=== PATIENT | female | born 1945 | race Two or more races ===

== ENCOUNTER 2016-12-11 06:33 | Emergency (ER) | payer MEDICARE, OTHER ==
[~2016-12-11] VITALS: Ht 160 cm; Wt 68.0 kg
--- NOTE | 2016-12-11 06:51 | NUR ---
DAUGHTER WILL BRING IN MEDS
[2016-12-11] MEDS ORDERED: ONDANSETRON 4 MG/2 ML VIAL IV ONE (07:00)
[2016-12-11] MEDS ORDERED: IV NORMAL SALINE 1000 ML BAG IV ONE (07:00)
[2016-12-11 07:08] LABS: BASOPHILS % (AUTO) 0.5 % (0.0-2.0); EOSINOPHILS # (AUTO) 0.1 K/uL (0.0-0.7); HEMATOCRIT 39.2 % (37-47); HEMOGLOBIN 13.4 G/DL (12.0-16.0); LYMPHOCYTES # (AUTO) 1.6 K/UL (0.8-4.8); LYMPHOCYTES % (AUTO) 43.3 % (20.5-51.5); MEAN CORPUSCULAR HGB CONC 34 g/dL (32.0-37.0); MEAN CORPUSCULAR VOLUME 88.1 FL (81.0-99.0); MONOCYTES # (AUTO) 0.3 K/UL (0.1-1.30); MONOCYTES % (AUTO) 8.1 % (0.0-11.0); NEUTROPHILS # (AUTO) 1.6 K/UL (1.8-8.9); NEUTROPHILS % (AUTO) 45.1 % (38.5-71.5); PLATELET COUNT (AUTO) 162 K/UL (150-450); RED BLOOD CELL COUNT(AUTO) 4.45 MIL/UL (4.2-5.4); WHITE BLOOD COUNT (AUTO) 3.6 K/UL (4.0-11.2)
[2016-12-11] MEDS ORDERED: ONDANSETRON 4 MG/2 ML VIAL ONE (07:13)
[2016-12-11 07:22] LABS: BILIRUBIN,DIRECT 0.1 mg/dL (0.0-0.2); BILIRUBIN,TOTAL 0.8 mg/dL (0.2-1.0); CREATININE 0.8 mg/dL (0.6-1.3); TOTAL PROTEIN, SERUM 6.6 g/dL (6.4-8.2)
[2016-12-11 07:53] VITALS: BP 136/69
--- NOTE | 2016-12-11 07:55 | NUR ---
IV removed. Catheter intact and site benign. Pressure and 4x4 gauze applied to site. No bleeding noted.
--- NOTE | 2016-12-11 07:55 | NUR ---
Patient discharged to home in stable conditon. Written and verbal after care instructions given. Patient verbalizes understanding of instructions.
== END 2016-12-11 07:56 | disposition home or self-care (01) ==
LOC: ER 06:35
DX: R00.1 Bradycardia, unspecified (principal); R11.0 Nausea; Z88.0 Allergy status to penicillin
CPT/HCPCS: 36415; 70030-TC; 83690; 85025; 93005; A4663; J2405; J7030

== ENCOUNTER 2017-09-02 01:08 | Emergency (ER) | payer MEDICARE, OTHER ==
[~2017-09-02] VITALS: Ht 160 cm; Wt 68.0 kg
--- NOTE | 2017-09-02 01:25 | NUR ---
DR SINDY RICKETTS MD AT BEDSIDE FOR MSE.
[2017-09-02] MEDS ORDERED: LORAZEPAM 2 MG/1 ML VIAL IM ONE (01:30)
[2017-09-02] MEDS ORDERED: ONDANSETRON 4 MG/2 ML VIAL IM ONE (01:30)
[2017-09-02] MEDS ORDERED: ONDANSETRON 4 MG/2 ML VIAL ONE (01:35)
[2017-09-02] MEDS ORDERED: LORAZEPAM 2 MG/1 ML VIAL ONE (01:36)
--- NOTE | 2017-09-02 02:08 | NUR ---
PT STILL C/O ABD PAIN AND "ACID", ER MD AT BEDSIDE FOR REEVAL.
[2017-09-02] MEDS ORDERED: FAMOTIDINE. 20 MG/2 ML VIAL IV ONE ×2 (02:15→02:17)
[2017-09-02] MEDS ORDERED: diphenhydrAMINE 50 MG/1 ML VIAL IV ONE (03:00)
[2017-09-02] MEDS ORDERED: METOCLOPRAMIDE HCL 10 MG/2 ML VIAL IV ONE (03:00)
[2017-09-02] MEDS ORDERED: HYDROMORPHONE 1 MG/1 ML DISP.SYRIN IV ONE (03:00)
[2017-09-02] MEDS ORDERED: NITROGLYCERIN 0.4 MG/TAB BOTTLE SL ONE (03:00)
--- NOTE | 2017-09-02 03:20 | NUR ---
PT RESTING IN BED W/ EYES CLOSED. PT PLACED ON 2.5L SUPPLEMENTAL O2 NC FOR DESAT TO 88%. ER AWARE.
--- NOTE | 2017-09-02 04:45 | NUR ---
Patient discharged to home in stable conditon. Written and verbal after care instructions given. Patient verbalizes understanding of instructions. IV removed, w/ catheter intact. ressure applied, no bleeding noted at site. PT left in wheelchair, accompanied by daughter. Pt took all personal belongings. No distress noted.
[2017-09-02 04:46] VITALS: BP 111/56
== END 2017-09-02 04:48 | disposition home or self-care (01) ==
LOC: ER 01:15
DX: F41.9 Anxiety disorder, unspecified (principal); R10.13 Epigastric pain; I10 Essential (primary) hypertension; E78.00 Pure hypercholesterolemia, unspecified; K21.9 Gastro-esophageal reflux disease without esophagitis; Z88.0 Allergy status to penicillin
CPT/HCPCS: 93005; A4663; J1170; J1200; J2060; J2405; J2765; J3490

== ENCOUNTER 2018-03-30 22:24 | Inpatient (IN) | payer OTHER, MEDICARE ==
[~2018-03-30] VITALS: Ht 162.6 cm; Wt 64.0 kg
--- NOTE | 2018-03-30 22:45 | NUR ---
Pt. ambulated into ED w/ c/o abd. pain 7/10 and heartburn/throat irritation x 4 hours, abd. s/r/nt/nd, BS active x4 quads, daughter,
[2018-03-30] MEDS ORDERED: LORAZEPAM 0.5 MG TABLET ONE (23:11)
[2018-03-30] MEDS ORDERED: LIDOCAINE VISCUS 2% 15 ML UDC ONE (23:11)
[2018-03-30] MEDS ORDERED: MAGNESIUM HYDROXIDE 30 ML LIQUID UDC ONE (23:11)
[2018-03-30] MEDS ORDERED: DICYCLOMINE HCL LIQ 10 MG/5 ML UDC ONE (23:12)
[2018-03-30] MEDS ORDERED: LORAZEPAM 0.5 MG TABLET PO ONE (23:15)
[2018-03-30] MEDS ORDERED: DICYCLOMINE HCL LIQ 10 MG/5 ML UDC PO ONE (23:15)
[2018-03-30] MEDS ORDERED: MAG HYDROX/AL HYDROX/SIMETH 30 ML LIQUID UDC PO ONE (23:15)
[2018-03-30] MEDS ORDERED: LIDOCAINE VISCUS 2% 15 ML UDC MM ONE (23:15)
[2018-03-30 23:19] LABS: BASOPHILS % (AUTO) 0.8 % (0.0-2.0); EOSINOPHILS # (AUTO) 0.1 K/uL (0.0-0.7); EOSINOPHILS % (AUTO) 1.9 % (0.0-7.0); HEMATOCRIT 36.1 % (31.2-41.9); HEMOGLOBIN 12.3 g/dL (10.9-14.3); LYMPHOCYTES # (AUTO) 1.7 K/uL (20.0-40.0); LYMPHOCYTES % (AUTO) 47.3 % (20.5-51.5); MEAN CORPUSCULAR HEMOGLOBIN 30.3 uug (24.7-32.8); MEAN CORPUSCULAR HGB CONC 34 g/dL (32.3-35.6); MEAN CORPUSCULAR VOLUME 88.8 fL (75.5-95.3); MONOCYTES # (AUTO) 0.2 K/uL (2.0-10.0); MONOCYTES % (AUTO) 6.6 % (0.0-11.0); NEUTROPHILS # (AUTO) 1.6 K/uL (1.8-8.9); NEUTROPHILS % (AUTO) 43.4 % (38.5-71.5); PLATELET COUNT (AUTO) 176 K/uL (179-408); RED BLOOD CELL COUNT(AUTO) 4.07 MIL/uL (3.63-4.92); WHITE BLOOD COUNT (AUTO) 3.7 K/uL (3.8-11.8)
[2018-03-30 23:25] LABS: CREATININE 0.8 mg/dL (0.6-1.3); POTASSIUM 3.8 mmol/L (3.5-5.1)
[2018-03-30 23:31] LABS: BILIRUBIN,DIRECT 0.1 mg/dL (0.0-0.2); BILIRUBIN,TOTAL 0.5 mg/dL (0.2-1.0); TOTAL PROTEIN, SERUM 6.3 g/dL (6.4-8.2)
--- NOTE | 2018-03-31 00:17 | NUR ---
Called [facility] for panel call, awaiting call back from Dr. John
--- NOTE | 2018-03-31 00:23 | NUR ---
US gallbladder - performed at bedside, negative results given to MD by tech.
[2018-03-31] MEDS ORDERED: Z GUARD REMEDY PASTE 57 GM TUBE TOP PRN (00:45)
[2018-03-31] MEDS ORDERED: LORAZEPAM 0.5 MG TABLET PO PRN (00:45)
[2018-03-31] MEDS ORDERED: MAGNESIUM HYDROXIDE 30 ML LIQUID UDC PO PRN (00:45)
[2018-03-31] MEDS ORDERED: ONDANSETRON 4 MG/2 ML VIAL IV PRN (00:45)
[2018-03-31] MEDS ORDERED: HYDROCODONE/APAP 5-325MG TABLET PO PRN (00:45)
[2018-03-31] MEDS ORDERED: TEMAZEPAM 15 MG CAPSULE PO PRN (00:45)
[2018-03-31] MEDS ORDERED: ACETAMINOPHEN 325 MG TABLET PO PRN (00:45)
--- NOTE | 2018-03-31 01:39 | NUR ---
Gave report to [facility]
--- NOTE | 2018-03-31 02:27 | NUR ---
Pt. transferred off unit via stretcher w/ IV intact - no s/s infection, NAD, accompanied by daughter,
[2018-03-31 02:30] VITALS: BP 128/49
--- NOTE | 2018-03-31 02:30 | NUR ---
Received patient from ED via gurney accompanied by DIMA Gifford. Patient alert and oriented x 4, ambulatory. On room air, tolerated. Noted with IV access at right hand, 20g to saline lock, patent and intact, flushed with saline. Placed tele monitor, noted sinus bradycardia at 44bpm, patient asymptomatic. Noted patient accompanied by daughter, Mirna. Patient settled in the room. Initial vital signs taken and recorded. Valuables list checked and signed. Bed in low position, locked, side rails up x 2, call light within reach. Noise and lights subdued. No abdominal pain noted at this time. Will continue to monitor.
[2018-03-31 04:57] VITALS: BP 121/49
--- NOTE | 2018-03-31 06:31 | NUR ---
Patient slept well after arriving in the unit. On room air tolerated. IV access at right hand, still patent and intact. No recurrence of abdominal pain. Patient still on sinus bradycardia on tele monitor but asymptomatic. Per daughter, she will bring patient's medication list/bottles for reconcilliation in the morning, will endorse to day shift nurse. Attended all needs. Ensured safety and comfort.
--- NOTE | 2018-03-31 07:20 | NUR ---
RECEIVED REPORT FROM FILING WRITER NURSE,PATIENT IN BED ASLEEP, NO DISTRESS NOTED AT THIS TIME, BED INLOW POSITION, SIDE RAILS UP X2. BED ALARM ON. CALL LIGHT IN REACH.
[2018-03-31 08:46] VITALS: BP 93/43
[2018-03-31] MEDS ORDERED: FAMOTIDINE. 20 MG/2 ML VIAL IV SCH (09:00)
[2018-03-31 11:44] VITALS: BP 107/44
[2018-03-31] MEDS ORDERED: ONDA4TAB5 PO (12:08)
[2018-03-31] MEDS ORDERED: LORA-259 PO (12:08)
--- NOTE | 2018-03-31 14:50 | NUR ---
PATIENT WAS GIVEN DISCHARGE INSTRUCTIONS, AND PRESCRIPTIONS. IV REMOVED, AND PATIENT PICKED UP BY DAUGHTER WHICH REFUSED A WHEELCHAIR AND TOOK PATIENT DOWN WALKING. NO DISTRESS NOTED AT TIME OF DISCHARGE.
== END 2018-03-31 14:50 | disposition home or self-care (01) | DRG 201 ==
LOC: ER 22:25 → TELE 03-31 02:00
PROVIDERS: ADMIT Nurse Practitioner Acute Care; ATTEND Nurse Practitioner Acute Care
DX: R00.1 Bradycardia, unspecified (principal); E11.9 Type 2 diabetes mellitus without complications; F41.1 Generalized anxiety disorder; K21.9 Gastro-esophageal reflux disease without esophagitis; T44.7X5A Adverse effect of beta-adrenoreceptor antagonists, initial encounter; Y92.019 Unspecified place in single-family (private) house as the place of occurrence of the external cause; G25.0 Essential tremor; E78.5 Hyperlipidemia, unspecified; I10 Essential (primary) hypertension
CPT/HCPCS: 36415; 83690; 85025; 93005; 93307; A4663; G0378; J3490

== ENCOUNTER 2018-09-30 00:39 | Emergency (ER) | payer MEDICARE, OTHER ==
[~2018-09-30] VITALS: Ht 160 cm; Wt 66.7 kg
[~2018-09-30 00:39] MED LIST: LORA-259 PO; ONDA4TAB5 PO
--- NOTE | 2018-09-30 00:55 | NUR ---
Patient ambulated with stable gait. Speech clear, speaks in complete sentences. No acute neuro deficits. A/Ox4. Patient came for c/o epigastric pain x3 hrs [employer]. Respiratory even and unlabored, no cough no sob. Patient does not appear to be in cardiovascular distress. Patient in bed at lowest position, sr upx2, call light within reach. Fall precautions and safety precautions implemented per protocol.
[2018-09-30] MEDS ORDERED: DICYCLOMINE HCL LIQ 10 MG/5 ML UDC PO ONE (01:00)
[2018-09-30] MEDS ORDERED: LIDOCAINE VISCUS 2% 15 ML UDC MM ONE (01:00)
[2018-09-30] MEDS ORDERED: MAG HYDROX/AL HYDROX/SIMETH 30 ML LIQUID UDC PO ONE (01:00)
[2018-09-30] MEDS ORDERED: LORAZEPAM 0.5 MG TABLET PO ONE (01:00)
[2018-09-30] MEDS ORDERED: LORAZEPAM 1 MG TABLET ONE (01:04)
[2018-09-30] MEDS ORDERED: MAG HYDROX/AL HYDROX/SIMETH 30 ML LIQUID UDC ONE (01:04)
[2018-09-30] MEDS ORDERED: LIDOCAINE VISCUS 2% 15 ML UDC ONE (01:04)
[2018-09-30] MEDS ORDERED: DICYCLOMINE HCL LIQ 10 MG/5 ML UDC ONE (01:04)
[2018-09-30 01:15] LABS: CARBON DIOXIDE 26 mmol/L (21-32); CHLORIDE 105 mmol/L (98-107); CREATININE 0.7 mg/dL (0.6-1.3); GLUCOSE 265 mg/dL (74-106); POTASSIUM 3.9 mmol/L (3.5-5.1); UREA NITROGEN, BLOOD 15 mg/dL (7-18)
[2018-09-30 01:21] LABS: ALANINE AMINOTRANSFERASE 17 U/L (14-59); ALKALINE PHOSPHATASE 85 U/L (50-136); ASPARTATE AMINOTRANSFERASE 10 U/L (15-37); BILIRUBIN,DIRECT 0.1 mg/dL (0.0-0.2); BILIRUBIN,TOTAL 0.8 mg/dL (0.2-1.0); LIPASE 78 U/L (73-393); TOTAL PROTEIN, SERUM 6.9 g/dL (6.4-8.2)
[2018-09-30 01:25] LABS: BASOPHILS % (AUTO) 0.5 % (0.0-2.0); EOSINOPHILS % (AUTO) 0.9 % (0.0-7.0); HEMOGLOBIN 13.4 g/dL (10.9-14.3); LYMPHOCYTES # (AUTO) 1.1 K/uL (20.0-40.0); LYMPHOCYTES % (AUTO) 19.4 % (20.5-51.5); MEAN CORPUSCULAR HEMOGLOBIN 29.8 uug (24.7-32.8); MEAN CORPUSCULAR HGB CONC 34 g/dL (32.3-35.6); MEAN CORPUSCULAR VOLUME 86.6 fL (75.5-95.3); MONOCYTES # (AUTO) 0.4 K/uL (2.0-10.0); MONOCYTES % (AUTO) 6.7 % (0.0-11.0); NEUTROPHILS % (AUTO) 72.5 % (38.5-71.5); PLATELET COUNT (AUTO) 180 K/uL (179-408); WHITE BLOOD COUNT (AUTO) 5.4 K/uL (3.8-11.8)
[2018-09-30] MEDS ORDERED: ONDANSETRON ODT 4 MG TAB.RAPDIS ONE (01:35)
[2018-09-30] MEDS ORDERED: ONDANSETRON ODT 4 MG TAB.RAPDIS SL ONE (01:45)
--- NOTE | 2018-09-30 01:58 | NUR ---
Patient discharged to home in stable conditon. Written and verbal after care instructions given. Patient verbalizes understanding of instructions. Patient ambulated with stable gait.
[2018-09-30 01:59] VITALS: BP 144/82
--- NOTE | 2018-09-30 02:00 | NUR ---
Patient will not be driving home, daughter will be the designated regional flatbed truck driver.
== END 2018-09-30 02:00 | disposition home or self-care (01) ==
LOC: ER 00:41
DX: R10.10 Upper abdominal pain, unspecified (principal); F41.9 Anxiety disorder, unspecified; E11.65 Type 2 diabetes mellitus with hyperglycemia; E78.00 Pure hypercholesterolemia, unspecified; I10 Essential (primary) hypertension; K21.9 Gastro-esophageal reflux disease without esophagitis; Z88.0 Allergy status to penicillin; Z79.899 Other long term (current) drug therapy
CPT/HCPCS: 36415; 70030-TC; 83690; 85025; 93005; A4663; Q0162

== ENCOUNTER 2019-04-05 14:36 | Emergency (ER) | payer MEDICARE, OTHER ==
[~2019-04-05] VITALS: Ht 152.4 cm; Wt 63.5 kg
[2019-04-05] MEDS ORDERED: PANTOPRAZOLE SODIUM IV 40 MG in IV DEXTROSE 5% 100 ML IV ONE (14:45)
[2019-04-05] MEDS ORDERED: PANTOPRAZOLE SODIUM 40 MG VIAL ONE (14:49)
[2019-04-05 15:00] LABS: BASOPHILS % (AUTO) 0.3 % (0.0-2.0); EOSINOPHILS # (AUTO) 0.1 K/uL (0.0-0.7); EOSINOPHILS % (AUTO) 0.8 % (0.0-7.0); HEMATOCRIT 42.4 % (31.2-41.9); HEMOGLOBIN 14.4 g/dL (10.9-14.3); LYMPHOCYTES # (AUTO) 0.7 K/uL (20.0-40.0); LYMPHOCYTES % (AUTO) 8.3 % (20.5-51.5); MEAN CORPUSCULAR HEMOGLOBIN 29.6 uug (24.7-32.8); MEAN CORPUSCULAR HGB CONC 34 g/dL (32.3-35.6); MEAN CORPUSCULAR VOLUME 87.1 fL (75.5-95.3); MONOCYTES # (AUTO) 0.3 K/uL (2.0-10.0); MONOCYTES % (AUTO) 3.7 % (0.0-11.0); NEUTROPHILS # (AUTO) 7.7 K/uL (1.8-8.9); NEUTROPHILS % (AUTO) 86.9 % (38.5-71.5); PLATELET COUNT (AUTO) 214 K/uL (179-408); RED BLOOD CELL COUNT(AUTO) 4.87 MIL/uL (3.63-4.92); WHITE BLOOD COUNT (AUTO) 8.9 K/uL (3.8-11.8)
[2019-04-05 15:14] LABS: ALANINE AMINOTRANSFERASE 21 U/L (14-59); ALKALINE PHOSPHATASE 72 U/L (50-136); ASPARTATE AMINOTRANSFERASE 12 U/L (15-37); BILIRUBIN,DIRECT < 0.1 mg/dL (0.0-0.2); BILIRUBIN,TOTAL 0.9 mg/dL (0.2-1.0); CARBON DIOXIDE 26 mmol/L (21-32); CHLORIDE 106 mmol/L (98-107); CREATININE 0.8 mg/dL (0.6-1.3); GLUCOSE 195 mg/dL (74-106); LIPASE 67 U/L (73-393); TOTAL PROTEIN, SERUM 7.2 g/dL (6.4-8.2); UREA NITROGEN, BLOOD 20 mg/dL (7-18)
[2019-04-05] MEDS ORDERED: MORPHINE SULFATE 4 MG/1 ML DISP.SYRIN ONE (15:39)
[2019-04-05] MEDS ORDERED: MORPHINE SULFATE 2 MG/1 ML DISP.SYRIN ONE (15:39)
[2019-04-05] MEDS ORDERED: ONDANSETRON 4 MG/2 ML VIAL ONE (15:39)
[2019-04-05] MEDS ORDERED: ONDANSETRON 4 MG/2 ML VIAL IV ONE (15:45)
[2019-04-05] MEDS ORDERED: MORPHINE SULFATE 4 MG/1 ML DISP.SYRIN IV ONE (15:45)
--- NOTE | 2019-04-05 16:01 | NUR ---
Patient had one emesis of light brown thin gastric contents. Skin & oral care were done. New bedsheet, gown & blankets provided. Comfort and safety measures maintained.
--- NOTE | 2019-04-05 16:44 | NUR ---
Patient had another emesis after the portable x-ray. Small thin clear gastric contents with some light brown streaks seen. Patient was reminded to use the emesis bag near her and not to vomit on herself or floor. Skin care was done.
--- NOTE | 2019-04-05 16:44 | NUR ---
Note ceciliomitchell in ED - 04/05/19 at 1655 by ROCHELLE Patient had one small emesis after the portable chest x-ray. Patient was again reminded to use the emesis bagnear her side and not to vomit on herself or the floor.
[2019-04-05] MEDS ORDERED: METOCLOPRAMIDE HCL 10 MG/2 ML VIAL IV ONE (17:15)
[2019-04-05] MEDS ORDERED: METOCLOPRAMIDE HCL 10 MG/2 ML VIAL ONE (17:24)
--- NOTE | 2019-04-05 18:10 | NUR ---
Copies of all tests were given to patient.
--- NOTE | 2019-04-05 18:14 | NUR ---
PATIENT IS PAIN FREE AT THIS TIME. IV removed. Catheter intact and site benign. Pressure and 4x4 gauze applied to site. No bleeding noted. Patient denies nausea. Patient discharged in stable condition. Written and verbal after care instructions given. Patient verbalized understanding & compliance of instructions. Patient says her daughter is picking her up.
== END 2019-04-05 18:18 | disposition home or self-care (01) ==
LOC: ER 14:44
DX: R10.13 Epigastric pain (principal); M79.672 Pain in left foot; I10 Essential (primary) hypertension; E78.5 Hyperlipidemia, unspecified; K21.9 Gastro-esophageal reflux disease without esophagitis; E11.9 Type 2 diabetes mellitus without complications; F41.9 Anxiety disorder, unspecified; F32.9 Major depressive disorder, single episode, unspecified; Z88.0 Allergy status to penicillin; Z79.2 Long term (current) use of antibiotics; Z79.899 Other long term (current) drug therapy
CPT/HCPCS: 36415; 73630; 74176; 76705; 80048; 80076; 82962; 83690; 84484; 85025; 93005; 96374; 96375; 99285; C9113; J2270 ×2; J2405; J2765; 70030-TC; A4663; J3490

== ENCOUNTER 2021-01-11 21:50 | Emergency (ER) | payer MEDICARE, OTHER ==
[~2021-01-11] VITALS: Ht 165.1 cm; Wt 64.9 kg
[~2021-01-11 21:50] MED LIST changes: +DICY10CA13 PO; +FAMO40TA7 PO; +LIDO5JEL9 MM; +ONDA-104 PO; -ONDA4TAB5 PO
[2021-01-11] MEDS ORDERED: PROCHLORPERAZINE EDISYLATE 10 MG/2 ML VIAL IV ONE (22:15)
[2021-01-11 22:26] LABS: HEMATOCRIT 42.5 % (31.2-41.9); MEAN CORPUSCULAR VOLUME 88.8 fL (75.5-95.3); PLATELET COUNT (AUTO) 166 K/uL (179-408)
[2021-01-11 22:30] LABS: CREATININE 0.9 mg/dL (0.6-1.3); POTASSIUM 3.6 mmol/L (3.5-5.1)
[2021-01-11] MEDS ORDERED: PROCHLORPERAZINE EDISYLATE 10 MG/2 ML VIAL ONE (22:33)
[2021-01-11 22:40] LABS: BILIRUBIN,DIRECT 0.1 mg/dL (0.0-0.2); BILIRUBIN,TOTAL 0.9 mg/dL (0.2-1.0); TOTAL PROTEIN, SERUM 7.6 g/dL (6.4-8.2)
[2021-01-11] MEDS ORDERED: KETOROLAC TROMETHAMINE 30 MG INJ IVP ONE (23:00)
[2021-01-11] MEDS ORDERED: CLINDAMYCIN HCL 150 MG CAPSULE PO ONE (23:00)
[2021-01-11] MEDS ORDERED: PROC-11 PO (23:05)
[2021-01-11] MEDS ORDERED: CLIN300C12 PO (23:05)
[2021-01-11] MEDS ORDERED: KETOROLAC TROMETHAMINE 30 MG INJ ONE (23:13)
[2021-01-11] MEDS ORDERED: CLINDAMYCIN HCL 150 MG CAPSULE ONE (23:13)
--- NOTE | 2021-01-11 23:29 | NUR ---
IV removed. Catheter intact and site benign. Pressure and 4x4 gauze applied to site. No bleeding noted.
--- NOTE | 2021-01-11 23:35 | NUR ---
Patient discharged to home in stable condition. Written and verbal after care instructions given. Patient verbalizes understanding of instructions. Stressed follow up or return to ER for worsening s/s.
[2021-01-11 23:42] VITALS: BP 132/73
== END 2021-01-11 23:35 | disposition home or self-care (01) ==
LOC: ER 21:53
DX: R11.0 Nausea (principal); T40.3X5A Adverse effect of methadone, initial encounter; Y92.013 Bedroom of single-family (private) house as the place of occurrence of the external cause; R94.31 Abnormal electrocardiogram [ECG] [EKG]; K08.89 Other specified disorders of teeth and supporting structures; Z88.0 Allergy status to penicillin; F41.9 Anxiety disorder, unspecified; E11.9 Type 2 diabetes mellitus without complications; I10 Essential (primary) hypertension
CPT/HCPCS: 36415; 80048; 80076; 83690; 83735; 84484; 85025; 93005; 96374; 96375; 99284; J0780; J1885; 70030-TC; A4663

== ENCOUNTER 2024-05-26 23:16 | Emergency (ER) | payer MEDICARE, OTHER ==
[~2024-05-26] VITALS: Ht 165.1 cm; Wt 64.9 kg
[~2024-05-26 23:16] MED LIST changes: +CLIN300C12 PO; +PROC-11 PO
[2024-05-27] MEDS ORDERED: diphenhydrAMINE 50 MG/1 ML VIAL ONE (00:09)
[2024-05-27] MEDS ORDERED: METOCLOPRAMIDE HCL 10 MG/2 ML VIAL ONE (00:09)
[2024-05-27] MEDS: METOCLOPRAMIDE HCL 10 MG/2 ML VIAL IM ONE (00:18)
[2024-05-27] MEDS: diphenhydrAMINE 50 MG/1 ML VIAL IM ONE (00:18)
[2024-05-27] MEDS ORDERED: METO10TA3 PO (01:08)
[2024-05-27] MEDS ORDERED: DIPH25TA25 PO (01:08)
[2024-05-27 01:36] VITALS: BP 150/70; O2SAT 99
== END 2024-05-27 01:37 | disposition home or self-care (01) ==
LOC: ER 23:28
DX: R11.0 Nausea (principal); R10.9 Unspecified abdominal pain; F41.9 Anxiety disorder, unspecified; E11.9 Type 2 diabetes mellitus without complications; K21.9 Gastro-esophageal reflux disease without esophagitis; I10 Essential (primary) hypertension; Z88.0 Allergy status to penicillin; Z88.7 Allergy status to serum and vaccine; Z86.79 Personal history of other diseases of the circulatory system
CPT/HCPCS: 99284; 96372 ×2; J1200; J2765; A4606; A4663